=== PATIENT | male | born 1990 | race Two or more races ===

== ENCOUNTER 2018-07-31 13:29 | Emergency (ER) | payer OTHER ==
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
[2018-07-31] MEDS ORDERED: NS 1,000 ML IV ONE (14:03)
[2018-07-31] MEDS ORDERED: HYDROmorphONE/DILAUDID 2 MG/ML INJ IVP ONE (14:04)
[2018-07-31 14:27] LABS: PLATELET COUNT 381 10^3/uL (150-400)
[2018-07-31 14:36] LABS: INR 1.06 (0.83-1.16); PROTIME(PATIENT) 13.4 SEC (12.0-15.0)
[2018-07-31] MEDS ORDERED: DEXAMETHASONE 10 MG/ML VIAL IVP ONE (14:50)
[2018-07-31 16:32] VITALS: BP 137/82
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
== END 2018-07-31 16:28 | disposition home or self-care (01) ==
DX: S02.19XA Other fracture of base of skull, initial encounter for closed fracture (principal); G58.8 Other specified mononeuropathies; R51 Headache; V19.9XXA Pedal cyclist (driver) (passenger) injured in unspecified traffic accident, initial encounter; Y93.55 Activity, bike riding
CPT/HCPCS: 96374; J1100; J1170